=== PATIENT | female | born 1940 | race Caucasian/White ===

== ENCOUNTER → 2017-02-07 | Outpatient (CLI) | payer OTHER ==
[~2017-02-07] MED LIST: ALBUTEROL MININEB NEB; AMITRYPTYLINE PO; AMLODIPINE BESY10 MG PO; ATARAX PO; CO Q10100 MG PO; FISH OIL 1,0001 CA2 PO; GABAPENTIN600 MG PO; HYDROCODON-ACE1 EAC4 PO; HYDROCODON-ACE1 EAC5 PO; IRON325 ( 652 PO; KRILL OIL 1,001 EAC1 PO; LISINOPRIL20 MG PO; LYRICA25 MG PO; LYRICA75 MG PO; MIRALAX17 GM PO; NASONEX17 GM; PRAVASTATIN SOD20 MG PO; PREVISION PO; PRIMIDONE50 MG PO; PROLIA60 MG/1 ML SUBQ; PROTONIX PO; RESTASIS1 EACH; ROBAXIN500 MG PO; TIZANIDINE HCL2 M1 PO; WOMEN'S 50+ DA1 EACH PO
== END | disposition home or self-care (01) ==
LOC: CSSDAY 12:10
DX: M81.0 Age-related osteoporosis without current pathological fracture (principal)
CPT/HCPCS: 82310; 96372; J0897